=== PATIENT | female | born 1975 | race Two or more races ===

== ENCOUNTER 2016-11-19 16:23 | Emergency (ER) | payer SELFPAY ==
[~2016-11-19] VITALS: Ht 162.6 cm; Wt 62.7 kg
[~2016-11-19 16:23] MED LIST: PERCOCET 5/31 TABLET PO
[2016-11-19 16:54] LABS: ADD MIUA? NO; BILIRUBIN NEGATIVE; BLOOD NEGATIVE; COLOR YELLOW ((YELLOW)); GLUCOSE (STRIP) NEGATIVE; KETONES NEGATIVE; LEUKOCYTES NEGATIVE; NITRITE NEGATIVE; PROTEIN (STRIP) NEGATIVE; SPECIFIC GRAVITY 1.029 (1.000-1.030); UCUL ADDED? NO; UROBILINOGEN 0.2 MG/DL (0.2-1.0)
[2016-11-19 17:03] LABS: HEMATOCRIT 38.9 % (36.0-46.0); MCH 29.3 PG (29.0-34.0); MCHC 33.4 G/DL (30.0-36.0); MCV 87.6 FL (83-99); MEAN PLAT.VOLUME 11.9 uM^3 (9.5-12.4); PLATELET COUNT 296 K/uL (156-360); RBC DIS.WIDTH-CV 13.6 % (11.8-14.6); RBC DIS.WIDTH-SD 43.1 % (39-53); RED BLOOD COUNT 4.44 M/uL (3.80-5.20); WHITE BLOOD COUNT 10.5 K/uL (4.1-10.2)
[2016-11-19 17:11] LABS: CHLORIDE 107 mEq/L (99-109); POTASSIUM 4.4 mEq/L (3.7-5.4); SODIUM 138 mEq/L (136-147)
[2016-11-19 17:14] LABS: GLUCOSE 96 mg/dL (70-99)
[2016-11-19 17:15] LABS: ANION GAP 7 MEQ/L (2-14); TOTAL BILIRUBIN 0.2 mg/dL (0.0-1.0)
[2016-11-19 17:17] LABS: ALKALINE PHOSPHATASE 89 IU/L (3-129); GFR ESTIMATE (CALCULATED) > 59 mL/min/
[2016-11-19 17:18] LABS: UREA NITROGEN (BUN) 16 mg/dL (9-23)
[2016-11-19 17:27] LABS: QUANTITATIVE HCG < 4.0 MIU/ML
[2016-11-19 18:22] LABS: LIPASE 35 U/L (1.0-51.0)
[2016-11-19] MEDS ORDERED: BENTYL10 MG PO (20:48)
[2016-11-19 22:16] VITALS: BP 98/59
== END 2016-11-19 22:20 | disposition home or self-care (01) ==
LOC: EME 16:23
DX: R10.10 Upper abdominal pain, unspecified (principal); R19.7 Diarrhea, unspecified
CPT/HCPCS: 74177; 76705; 80053; 81003; 83690; 84702; 85027; 87506; 93005; 99281; 99285; J2270; J2405

== ENCOUNTER 2017-04-10 13:55 | Emergency (ER) | payer SELFPAY ==
[~2017-04-10] VITALS: Ht 165.1 cm; Wt 65.0 kg
[~2017-04-10 13:55] MED LIST changes: +BENTYL10 MG PO
[2017-04-10 14:33] LABS: HEMATOCRIT 35.9 % (36.0-46.0); HEMOGLOBIN 12.2 G/DL (11.9-15.5); MCH 29.8 PG (29.0-34.0); MCV 87.8 FL (83-99); PLATELET COUNT 266 K/uL (156-360); RBC DIS.WIDTH-CV 13.9 % (11.8-14.6); RBC DIS.WIDTH-SD 43.9 % (39-53); RED BLOOD COUNT 4.09 M/uL (3.80-5.20); WHITE BLOOD COUNT 8.8 K/uL (4.1-10.2)
[2017-04-10 14:44] LABS: ALBUMIN 4.2 g/dL (3.2-4.8); CHLORIDE 105 mEq/L (99-109); POTASSIUM 3.6 mEq/L (3.7-5.4); SODIUM 138 mEq/L (136-147)
[2017-04-10 14:46] LABS: GLUCOSE 109 mg/dL (70-99); TOTAL PROTEIN 7.2 g/dL (6.4-8.3)
[2017-04-10 14:48] LABS: TOTAL BILIRUBIN 0.2 mg/dL (0.0-1.0)
[2017-04-10 14:50] LABS: ALKALINE PHOSPHATASE 77 IU/L (3-129); CREATININE 0.7 mg/dL (0.6-1.3); GFR ESTIMATE (CALCULATED) > 59 mL/min/
[2017-04-10 14:51] LABS: AST (GOT) 13 IU/L (2-34); UREA NITROGEN (BUN) 15 mg/dL (9-23)
[2017-04-10 14:53] LABS: ALT (GPT) 10 IU/L (3-49); LIPASE 28 U/L (1.0-51.0)
[2017-04-10 15:01] LABS: QUANTITATIVE HCG < 4.0 MIU/ML
[2017-04-10 15:12] LABS: APPEARANCE CLEAR ((CLEAR)); BILIRUBIN NEGATIVE; BLOOD NEGATIVE; COLOR YELLOW ((YELLOW)); GLUCOSE (STRIP) NEGATIVE; KETONES NEGATIVE; LEUKOCYTES NEGATIVE; NITRITE NEGATIVE; PROTEIN (STRIP) NEGATIVE; SPECIFIC GRAVITY 1.021 (1.000-1.030); UCUL ADDED? NO; UROBILINOGEN 0.2 MG/DL (0.2-1.0)
[2017-04-10] MEDS ORDERED: NAPROSYN500 MG PO (17:21)
[2017-04-10 17:40] VITALS: BP 119/61
== END 2017-04-10 17:41 | disposition home or self-care (01) ==
LOC: EME 13:55
DX: D25.9 Leiomyoma of uterus, unspecified (principal); Z85.43 Personal history of malignant neoplasm of ovary
CPT/HCPCS: 76856; 80053; 81003; 83690; 84702; 85027; 87086; 99281; 99285

== ENCOUNTER 2017-05-19 12:57 | Emergency (ER) | payer SELFPAY ==
[~2017-05-19] VITALS: Ht 160 cm; Wt 64.5 kg
[~2017-05-19 12:57] MED LIST changes: +NAPROSYN500 MG PO
[2017-05-19 13:49] LABS: HEMATOCRIT 38.9 % (36.0-46.0); HEMOGLOBIN 13.3 G/DL (11.9-15.5); MCH 30.3 PG (29.0-34.0); MCHC 34.2 G/DL (30.0-36.0); MCV 88.6 FL (83-99); PLATELET COUNT 265 K/uL (156-360); RBC DIS.WIDTH-CV 14.1 % (11.8-14.6); RBC DIS.WIDTH-SD 46.1 % (39-53); RED BLOOD COUNT 4.39 M/uL (3.80-5.20); WHITE BLOOD COUNT 7.8 K/uL (4.1-10.2)
[2017-05-19 13:59] LABS: ALBUMIN 4.5 g/dL (3.2-4.8); CHLORIDE 106 mEq/L (99-109); POTASSIUM 4.2 mEq/L (3.7-5.4); SODIUM 140 mEq/L (136-147)
[2017-05-19 14:01] LABS: GLUCOSE 92 mg/dL (70-99)
[2017-05-19 14:02] LABS: TOTAL PROTEIN 7.8 g/dL (6.4-8.3)
[2017-05-19 14:03] LABS: TOTAL BILIRUBIN 0.2 mg/dL (0.0-1.0)
[2017-05-19 14:05] LABS: ALKALINE PHOSPHATASE 83 IU/L (3-129); CREATININE 0.8 mg/dL (0.6-1.3); GFR ESTIMATE (CALCULATED) > 59 mL/min/
[2017-05-19 14:06] LABS: UREA NITROGEN (BUN) 13 mg/dL (9-23)
[2017-05-19 14:07] LABS: AST (GOT) 17 IU/L (2-34)
[2017-05-19 14:08] LABS: ALT (GPT) 13 IU/L (3-49)
[2017-05-19 14:16] LABS: QUANTITATIVE HCG < 4.0 MIU/ML
[2017-05-19 17:32] LABS: APPEARANCE SL.HAZY ((CLEAR)); BILIRUBIN NEGATIVE; BLOOD LARGE; COLOR YELLOW ((YELLOW)); GLUCOSE (STRIP) NEGATIVE; KETONES NEGATIVE; LEUKOCYTES NEGATIVE; NITRITE NEGATIVE; PROTEIN (STRIP) NEGATIVE; SPECIFIC GRAVITY 1.029 (1.000-1.030); UROBILINOGEN 0.2 MG/DL (0.2-1.0)
[2017-05-19 17:43] LABS: BACTERIA NONE SEEN /HPF; EPITHELIAL CELLS RARE /HPF; MUCUS TRACE /LPF; RED BLOOD CELLS TNTC /HPF (0-5); UCUL ADDED? YES; WHITE BLOOD CELLS 0-5 /HPF (0-5)
[2017-05-19] MEDS ORDERED: ULTRAM50 MG PO (21:12)
[2017-05-19 21:23] VITALS: BP 103/66
== END 2017-05-19 21:22 | disposition home or self-care (01) ==
LOC: EME 12:57
DX: D25.9 Leiomyoma of uterus, unspecified (principal); M25.562 Pain in left knee; G89.29 Other chronic pain; Z85.43 Personal history of malignant neoplasm of ovary
CPT/HCPCS: 76856; 80053; 81003; 84702; 85027; 87086; 99281; 99284

== ENCOUNTER 2017-07-15 15:35 | Emergency (ER) | payer SELFPAY ==
[~2017-07-15] VITALS: Ht 160 cm; Wt 64.2 kg
[~2017-07-15 15:35] MED LIST changes: +ULTRAM50 MG PO
[2017-07-15] MEDS ORDERED: MOBIC7.5 MG PO (16:50)
[2017-07-15] MEDS ORDERED: ULTRACET1 TABLET PO (16:50)
[2017-07-15 17:22] VITALS: BP 109/64
== END 2017-07-15 17:24 | disposition home or self-care (01) ==
LOC: RME 15:35 → EME 15:35 → RME 17:24
DX: M25.562 Pain in left knee (principal); G89.29 Other chronic pain; Z98.890 Other specified postprocedural states
CPT/HCPCS: 73564; 99281; 99284